=== PATIENT | female | born 1995 | race African-American/Black ===

== ENCOUNTER 2016-05-15 10:39 | Emergency (ER) | payer MEDICAID | END 2016-05-15 12:20 | disposition home or self-care (01) | LOC: D.ER 10:39 | DX: K02.9 Dental caries, unspecified (principal); K08.89 Other specified disorders of teeth and supporting structures ==

== ENCOUNTER 2019-10-25 14:35 | Emergency (ER) | payer OTHER ==
[~2019-10-25] VITALS: Ht 160 cm; Wt 51.8 kg
[2019-10-25 14:42] VITALS: Ht 160 cm; Wt 51.8 kg
[2019-10-25 16:41] LABS: BILIRUBIN NEGATIVE (NEGATIVE); GLUCOSE NEGATIVE (NEGATIVE); KETONE NEGATIVE (NEGATIVE); NITRITE NEGATIVE (NEGATIVE); UROBILINOGEN NORMAL (NORMAL)
[2019-10-25 16:42] LABS: BACTERIA FEW /hpf (NEGATIVE); EPITHELIAL CELLS OCC /hpf (0-5); RED CELLS - URINE 0-5 /hpf (0-5); WHITE CELLS - URINE 0-5 /hpf (NEGATIVE)
== END 2019-10-25 18:24 | disposition left against medical advice (07) ==
LOC: D.ER 14:35
DX: R10.9 Unspecified abdominal pain (principal)